=== PATIENT | male | born 1955 | race Two or more races ===

== ENCOUNTER → 2016-07-17 | Outpatient (CLI) | payer BC ==
[~2016-07-17] MED LIST: DIOVAN160 MG PO; LEVAQUIN750 MG PO; NAPROSYN500 MG PO
--- NOTE | ~2016-07-17 | CT107 ---
[facility] A Service [facility] RADIOLOGY TEXT RESULTS PATIENT: JEWELL RANKIN LOCATION: [facility] : 53 UNIT #: [id number] AGE: [address]: Eder Ta MD SEX: M ORDER DR: [id number] [facility]. [place], [place] [address] [id number] O MR#: [id number] Acc #: [id number] NAME: JEWELL RANKIN : 1955 SEX: M STUDY DATE/TIME: 07/17/2016 7:57 [facility]: STUDY DESCRIPTION: CT Pelvis Wo Cont Attending Physician: Eder Parr M.D. Referring Physician: Eder Parr M.D. Ordering Physician: Eder Parr M.D. Primary Care Physician: Doretha Glover M.D. MEDICAL IMAGING REPORT This report is preliminary unless electronic signature is present EXAM CT pelvis INDICATION Right lower quadrant abdominal pain and right-sided pelvic pain for 1 month. Prior inguinal hernia. TECHNIQUE CT of the pelvis without contrast. Coronal and sagittal reconstructions were obtained. This CT exam was performed with one or more of the following radiation dose reduction techniques: automatic exposure control, adjustment of mA and/or kV according to patient size, and iterative reconstruction. COMPARISON Pelvic radiograph dated 07/05/2016. FINDINGS No pelvic mass or free pelvic fluid. No enlarged pelvic or inguinal lymph nodes. There is some left-sided colonic diverticula. There is a small umbilical hernia. No evidence of a inguinal or femoral hernia. There is mild prostatic enlargement with the prostate measuring 6.5 x 5.1 x 3.9 cm. There is mild degenerative changes of both hips. There is partial fusion of the right sacroiliac joint. IMPRESSION 1. No acute findings in the right lower quadrant to account for the patient's symptoms. 2. Colonic diverticulosis and prostatic hypertrophy. Dictated by... [facility] A Service [facility] RADIOLOGY TEXT RESULTS PATIENT: JEWELL RANKIN [facility] UN[facility] #: [id number] AGE: [address]: Eder Ta MD SEX: M ORDER DR: Enrique Dockery M.D. THIS IS AN ELECTRONICALLY VERIFIED REPORT Enrique Dockery M.D. at 07/18/2016 11:16 AM DICKSON/daniela TD: 07/18/2016 10:57 JOB #: [id number] MEDICAL IMAGING REPORT Page 1 of 1 COPY
== END | disposition home or self-care (01) ==
LOC: CCAT 07:39
DX: R10.2 Pelvic and perineal pain (principal); K57.30 Diverticulosis of large intestine without perforation or abscess without bleeding; N40.0 Benign prostatic hyperplasia without lower urinary tract symptoms
CPT/HCPCS: 72192